=== PATIENT | female | born 1935 | race Caucasian/White ===

== ENCOUNTER → 2017-06-01 07:01 | Outpatient (CLI) | payer MEDICARE, OTHER, SELFPAY ==
[2017-06-01 10:56] LABS: Absolute Neutrophil Count 5.3 X10^3/uL (2.0-7.7); Basophil# 0.01 X10^3/uL; Basophil% 0.1 % (0-1); Eosinophil# 0.11 X10^3/uL; Eosinophils% 1.4 % (0-5); Hematocrit 38.5 % (37-47); Hemoglobin 12.7 g/dl (12.0-15.0); Lymphocyte % 20.8 % (19-41); Mean Corpuscular Hgb 32.4 pg (27.0-32.0); Mean Corpuscular Volume 98.2 fL (81-99); Mean Platelet Vol. 11.9 fl (6.2-12.0); Monocyte# 0.66 X10^3/uL; Monocyte% 8.6 % (0-10); Neutrophil # 5.31 X10^3/uL (2.7-7.7); Platelet Count 189 K/mm3 (150-450); RBC Distribution Width CV 12.8 % (11.6-14.6); RBC Distribution Width SD 45.8 fl (35.1-43.9); Red Blood Count 3.92 M/mm3 (4.2-5.4); White Blood Count 7.7 K/mm3 (4.4-11.0)
[2017-06-01 10:57] LABS: POSITIVE COUNT NO; POSITIVE DIFFERENTIAL NO; POSITIVE MORPHOLOGY NO
[2017-06-01 11:15] LABS: ALB/GLOB Ratio 0.9 RATIO (0.9-2.4); AST(SGOT) 20 U/L (15-37); Alanine Aminotransfer ALT/SGPT 23 U/L (13-56); Albumin, Serum 3.6 g/dL (3.2-5.0); Alkaline Phosphatase 81 U/L (45-117); Anion Gap 9 (5-15); BUN 22 mg/dL (7-18); BUN/Creat Ratio 22.9 RATIO (10-20); Chloride 105 mmol/L (98-107); Cholesterol 133 mg/dL (200); Creatinine, Serum 0.96 mg/dL (0.55-1.02); EST Glomerular Filtration Rate 59 mL/min (>60); Est Glom Filt Rate - Afr Amer 72 mL/min (>60); Globulin 3.9 g/dL (2.2-4.2); Glucose 101 mg/dL (74-106); High Density Lipoprotein 53 mg/dL; Potassium 3.5 mmol/L (3.5-5.1); Protein, Total 7.5 g/dL (6.4-8.2); Sodium Level 141 mmol/L (136-145); Triglycerides 101 mg/dL; Very Low Density Lipoprotein 20 mg/dL (5-40)
== END ==
LOC: BFHLAB 07:05 → MTLAB 07:09
PROVIDERS: Family Provider Family Medicine; PCP Family Medicine; Visit Provider Family Medicine
DX: I10 Essential (primary) hypertension (principal); E78.00 Pure hypercholesterolemia, unspecified; I47.2 Ventricular tachycardia
CPT/HCPCS: 36415; 80053; 80061; 85025

== ENCOUNTER → 2017-06-24 11:29 | Outpatient (CLI) | payer MEDICARE, OTHER, SELFPAY ==
[2017-06-24 16:10] LABS: Anion Gap 9 (5-15); BUN 26 mg/dL (7-18); BUN/Creat Ratio 23.9 RATIO (10-20); Calcium,Total 8.7 mg/dL (8.5-10.1); Chloride 103 mmol/L (98-107); Creatinine, Serum 1.09 mg/dL (0.55-1.02); EST Glomerular Filtration Rate 51 mL/min (>60); Est Glom Filt Rate - Afr Amer 62 mL/min (>60); Glucose 110 mg/dL (74-106); Potassium 3.3 mmol/L (3.5-5.1); Sodium Level 139 mmol/L (136-145)
== END ==
PROVIDERS: Family Provider Family Medicine; PCP Family Medicine; Visit Provider Family Medicine
DX: I10 Essential (primary) hypertension (principal)
CPT/HCPCS: 36415; 80048

== ENCOUNTER → 2017-08-18 09:53 | Outpatient (CLI) | payer MEDICARE, OTHER, SELFPAY ==
--- NOTE | 2017-08-18 09:55 | ECHOD_ITS ---
Reason For Study: Valve eval Procedure This was a 2D Doppler, Color Flow transthoracic echocardiogram. Exam performed in department. Left Ventricle Mild concentric left ventricular hypertrophy. The estimated ejection fraction is 65 %. Stage 1 diastolic dysfunction. No regional wall motion abnormalities noted. Right Ventricle Normal size and thickness. Normal systolic function. Atria Normal left atrium. Normal right atrium. Normal atrial septum. Mitral Valve The mitral valve is structurally normal. No prolapse or stenosis seen. Mild mitral annular calcification extending into the posterior leaflet. Tricuspid Valve Normal tricuspid valve. Trivial tricuspid valve insufficiency. Right ventricular systolic pressure estimated to be 32 mmHg. Aortic Valve Trisinus/trileaflet aortic valve. Mild diffuse aortic valve thickening. Mild (1+) aortic valve insufficiency. Pulmonic Valve Normal pulmonic valve. Great Vessels Normal aortic root. Normal arch. Normal inferior vena cava. Inferior vena cava collapse with sniff. Pericardium/Pleural No pericardial effusion. MMode/2D Measurements & Calculations LVIDd: 4.7 cm IVSd: 1.2 cm LVOT diam: 2.0 cm LVIDs: 2.9 cm LVPWd: 1.3 cm LVOT area: 3.1 cm2 FS: 37.7 % Ao root diam: 3.6 cm LAV(MOD-bp): 40.2 ml LA A4 area: 13.8 cm2 LA dimension: 3.5 cm LAV(MOD-bp) Indexed: 20.5 ml/m2 LAV(MOD-sp2): 52.7 ml LAV(MOD-sp4): 29.3 ml RA A4 area: 12.7 cm2 Time Measurements MV dec time: 0.20 sec Doppler Measurements & Calculations MV E max cameron: 88.7 cm/sec Lat Peak E' Cameron: 3.5 cm/sec Med Peak E' Cameron: 5.2 cm/sec MV A max cameron: 109.5 cm/sec E/E' lat: 25.0 E/E' med: 17.0 MV E/A: 0.81 MV V2 max: 120.8 cm/sec MV P1/2t max cameron: 101.2 cm/sec Ao V2 max: 158.2 cm/sec MV max P.8 mmHg MV P1/2t: 69.2 msec Ao max P.0 mmHg MV V2 mean: 63.2 cm/sec MV dec slope: 428.4 cm/sec2 Ao V2 mean: 105.2 cm/sec MV mean P.9 mmHg MVA(P1/2t): 3.2 cm2 Ao mean P.0 mmHg MV V2 VTI: 36.7 cm Ao V2 VTI: 34.0 cm MVA(VTI): 2.2 cm2 DAVID(I,D): 2.4 cm2 DAVID(V,D): 2.3 cm2 AI max cameron: 503.0 cm/sec LV V1 max: 117.0 cm/sec SV(LVOT): 80.5 ml AI max P.2 mmHg LV V1 max P.5 mmHg AI dec slope: 286.7 cm/sec2 LV V1 mean P.8 mmHg AI P1/2t: 513.9 msec LV V1 mean: 77.2 cm/sec LV V1 VTI: 26.3 cm PA V2 max: 100.2 cm/sec TR max cameron: 261.4 cm/sec TR max P.3 mmHg Interpretation Summary Mild concentric left ventricular hypertrophy. The estimated ejection fraction is 65 %. Stage 1 diastolic dysfunction. Trivial tricuspid valve insufficiency. Right ventricular systolic pressure estimated to be 32 mmHg. Mild (1+) aortic valve insufficiency. In comparison to echo report dated 01/21/2013, no appreciable changes noted. Ordering Physician: Alfred Landers Referring Physician: Alfred Landers Performed By: Marcos Juárez RCS
== END ==
PROVIDERS: Family Provider Family Medicine; PCP Family Medicine; Visit Provider Internal Medicine Cardiovascular Disease
DX: I47.1 Supraventricular tachycardia (principal); I35.1 Nonrheumatic aortic (valve) insufficiency; E78.5 Hyperlipidemia, unspecified; I10 Essential (primary) hypertension
CPT/HCPCS: 93306

== ENCOUNTER → 2018-06-17 | Outpatient (CLI) | payer MEDICARE, OTHER, SELFPAY ==
[2018-06-17 09:57] LABS: Absolute Lymphocyte Count 1.38 X10^3/ul (0.83-4.51); Absolute Neutrophil Count 6.1 X10^3/uL (2.0-7.7); Basophil# 0.01 X10^3/uL; Basophil% 0.1 % (0-1); Eosinophil# 0.15 X10^3/uL; Eosinophils% 1.8 % (0-5); Hemoglobin 12.2 g/dl (12.0-15.0); Lymphocyte # 1.38 X10^3/ul (4.0); Lymphocyte % 16.5 % (19-41); Mean Corpuscular Hgb 32.3 pg (27.0-32.0); Mean Corpuscular Volume 97.9 fL (81-99); Mean Platelet Vol. 11.6 fl (6.2-12.0); Monocyte# 0.71 X10^3/uL; Monocyte% 8.5 % (0-10); Neutrophil # 6.11 X10^3/uL (2.7-7.7); Platelet Count 185 K/mm3 (150-450); RBC Distribution Width CV 12.8 % (11.6-14.6); Red Blood Count 3.78 M/mm3 (4.2-5.4); White Blood Count 8.4 K/mm3 (4.4-11.0)
[2018-06-17 09:58] LABS: POSITIVE COUNT NO; POSITIVE DIFFERENTIAL NO; POSITIVE MORPHOLOGY NO
[2018-06-17 10:20] LABS: ALB/GLOB Ratio 1.1 RATIO (0.9-2.4); AST(SGOT) 17 U/L (15-37); Alanine Aminotransfer ALT/SGPT 19 U/L (13-56); Albumin, Serum 3.7 g/dL (3.2-5.0); Alkaline Phosphatase 88 U/L (45-117); Anion Gap 6 (5-15); BUN 27 mg/dL (7-18); BUN/Creat Ratio 21.6 RATIO (10-20); Calcium,Total 8.8 mg/dL (8.5-10.1); Chloride 103 mmol/L (98-107); Cholesterol 125 mg/dL (200); Creatinine, Serum 1.25 mg/dL (0.55-1.02); EST Glomerular Filtration Rate 44 mL/min (>60); Est Glom Filt Rate - Afr Amer 53 mL/min (>60); Globulin 3.5 g/dL (2.2-4.2); Glucose 109 mg/dL (74-106); High Density Lipoprotein 57 mg/dL; Potassium 3.3 mmol/L (3.5-5.1); Protein, Total 7.2 g/dL (6.4-8.2); Sodium Level 139 mmol/L (136-145); Triglycerides 107 mg/dL; Very Low Density Lipoprotein 21 mg/dL (5-40)
== END | disposition home or self-care (01) ==
LOC: MTLAB 07:04
PROVIDERS: Family Provider Family Medicine; PCP Family Medicine; Referring Provider Family Medicine; Visit Provider Family Medicine
DX: I10 Essential (primary) hypertension (principal); E78.00 Pure hypercholesterolemia, unspecified; Z51.81 Encounter for therapeutic drug level monitoring
CPT/HCPCS: 36415; 80053; 80061; 85025

== ENCOUNTER → 2018-12-27 13:28 | Outpatient (CLI) | payer MEDICARE, OTHER, SELFPAY ==
[2017-12-14 13:29] VITALS: BMI 32.8
[2018-12-27 15:32] LABS: Absolute Lymphocyte Count 1.85 X10^3/uL (0.83-4.51); Absolute Neutrophil Count 5.4 X10^3/uL (2.0-7.7); Basophil# 0.03 X10^3/uL; Basophil% 0.4 % (0-1); Eosinophil# 0.15 X10^3/uL; Eosinophils% 1.8 % (0-5); Hematocrit 35.5 % (37-47); Hemoglobin 11.9 g/dL (12.0-15.0); Lymphocyte # 1.85 X10^3/ul (4.0); Lymphocyte % 22.5 % (19-41); Mean Corp Hgb Conc 33.5 g/dL (32-36); Mean Corpuscular Volume 98.3 fL (81-99); Monocyte# 0.76 X10^3/uL; Monocyte% 9.2 % (0-10); NRBC Flagged by Analyzer 0 % (0-5); Neutrophil # 5.42 X10^3/uL (2.7-7.7); Neutrophil % 65.9 % (47-70); Platelet Count 194 K/mm3 (150-450); RBC Distribution Width CV 12.7 % (11.6-14.6); Red Blood Count 3.61 M/mm3 (4.2-5.4); White Blood Count 8.2 K/mm3 (4.4-11.0)
[2018-12-27 16:03] LABS: Vitamin D,25 Hydroxy 12.5 ng/mL (29.95-100.01)
[2018-12-27 16:13] LABS: ALB/GLOB Ratio 0.9 RATIO (0.9-2.4); AST(SGOT) 19 U/L (15-37); Alanine Aminotransfer ALT/SGPT 19 U/L (13-56); Albumin, Serum 3.4 g/dL (3.2-5.0); Alkaline Phosphatase 84 U/L (45-117); Anion Gap 11 (5-15); BUN 18 mg/dL (7-18); BUN/Creat Ratio 18.1 RATIO (10-20); Calcium,Total 8.3 mg/dL (8.5-10.1); Chloride 102 mmol/L (98-107); EST Glomerular Filtration Rate 57 mL/min (>60); Est Glom Filt Rate - Afr Amer 69 mL/min (>60); Globulin 3.6 g/dL (2.2-4.2); Glucose 95 mg/dL (74-106); Sodium Level 140 mmol/L (136-145)
[2018-12-27 16:59] LABS: Hemoglobin A1c 5.7 % (4.2-6.3)
[2018-12-27 17:38] LABS: Potassium 2.6 mmol/L (3.5-5.1)
[2018-12-29 15:42] LABS: V-Zoster IgG (Immunity) 2190 index (Immune >165)
== END ==
PROVIDERS: Family Provider Family Medicine; PCP Family Medicine; Visit Provider Family Medicine
DX: I12.9 Hypertensive chronic kidney disease with stage 1 through stage 4 chronic kidney disease, or unspecified chronic kidney disease (principal); N18.3 Chronic kidney disease, stage 3 (moderate); R73.01 Impaired fasting glucose; B02.9 Zoster without complications; Z91.89 Other specified personal risk factors, not elsewhere classified
CPT/HCPCS: 36415; 80053; 82306; 83036; 85025; 86787

== ENCOUNTER → 2019-01-03 11:14 | Outpatient (CLI) | payer MEDICARE, OTHER, SELFPAY ==
[2017-12-14 13:29] VITALS: BMI 32.8
[2019-01-03 16:31] LABS: Anion Gap 9 (5-15); BUN 16 mg/dL (7-18); BUN/Creat Ratio 15.5 RATIO (10-20); Calcium,Total 8.3 mg/dL (8.5-10.1); Chloride 106 mmol/L (98-107); Creatinine, Serum 1.03 mg/dL (0.55-1.02); EST Glomerular Filtration Rate 55 mL/min (>60); Est Glom Filt Rate - Afr Amer 66 mL/min (>60); Glucose 148 mg/dL (74-106); Potassium 4.2 mmol/L (3.5-5.1); Sodium Level 138 mmol/L (136-145)
== END ==
LOC: LAB.FUTURE 11:14 → BFHLAB 01-04 13:24
PROVIDERS: Family Provider Family Medicine; PCP Family Medicine; Visit Provider Family Medicine
DX: E87.6 Hypokalemia (principal)
CPT/HCPCS: 36415; 80048

== ENCOUNTER → 2019-03-15 12:17 | Outpatient (CLI) | payer MEDICARE, OTHER, SELFPAY ==
[2017-12-14 13:29] VITALS: BMI 32.8
[2019-03-15 15:55] LABS: Anion Gap 6 (5-15); BUN 25 mg/dL (7-18); BUN/Creat Ratio 20.8 RATIO (10-20); Calcium,Total 9.1 mg/dL (8.5-10.1); Chloride 108 mmol/L (98-107); EST Glomerular Filtration Rate 46 mL/min (>60); Est Glom Filt Rate - Afr Amer 55 mL/min (>60); Glucose 98 mg/dL (74-106); Potassium 3.7 mmol/L (3.5-5.1); Sodium Level 139 mmol/L (136-145)
== END ==
LOC: LAB.FUTURE 12:22 → BFHLAB 04-26 09:47
PROVIDERS: Family Provider Family Medicine; PCP Family Medicine; Visit Provider Family Medicine
DX: I12.9 Hypertensive chronic kidney disease with stage 1 through stage 4 chronic kidney disease, or unspecified chronic kidney disease (principal); N18.9 Chronic kidney disease, unspecified
CPT/HCPCS: 36415; 80048

== ENCOUNTER → 2019-08-29 11:48 | Outpatient (CLI) | payer MEDICARE, OTHER, SELFPAY ==
[2019-08-29 16:19] LABS: Anion Gap 9 (5-15); BUN 17 mg/dL (7-18); BUN/Creat Ratio 17.8 RATIO (10-20); Calcium,Total 8.8 mg/dL (8.5-10.1); Chloride 103 mmol/L (98-107); Creatinine, Serum 0.96 mg/dL (0.55-1.02); EST Glomerular Filtration Rate 59 mL/min (>60); Est Glom Filt Rate - Afr Amer 72 mL/min (>60); Glucose 103 mg/dL (74-106); Potassium 3.9 mmol/L (3.5-5.1); Sodium Level 135 mmol/L (136-145)
== END ==
PROVIDERS: PCP Family Medicine; Visit Provider Family Medicine
DX: N18.3 Chronic kidney disease, stage 3 (moderate) (principal)
CPT/HCPCS: 36415; 80048

== ENCOUNTER 2019-09-23 09:00 | Outpatient (RCR) | payer MEDICARE, OTHER, SELFPAY ==
[2019-09-09 09:36] VITALS: BP 127/71; PULSE 76; RESP 18; TEMP 36.3
--- NOTE | 2019-09-09 14:53 | PCM.WC.HP ---
(1) Lymphedema of both lower extremities Status: Chronic Current Visit: Yes Code(s): I89.0 - Lymphedema, not elsewhere classified (2) Venous ulcer of right lower extremity without varicose veins Status: Chronic Current Visit: Yes Code(s): I87.2 - Venous insufficiency (chronic) (peripheral); L97.919 - Non-pressure chronic ulcer of unspecified part of right lower leg with unspecified severity (3) Venous ulcer of left lower extremity without varicose veins Status: Chronic Current Visit: Yes Code(s): I87.2 - Venous insufficiency (chronic) (peripheral); L97.929 - Non-pressure chronic ulcer of unspecified part of left lower leg with unspecified severity (4) Hyperlipidemia Status: Chronic Current Visit: Yes Qualifiers: Code(s): E78.5 - Hyperlipidemia, unspecified (5) HTN (hypertension) Status: Chronic Current Visit: Yes Qualifiers: Code(s): I10 - Essential (primary) hypertension History of Present Illness Date of Service: 09/09/19 Chief Complaint: edema and ulcers of LE bilaterally Past Medical History Past Medical History: Chronic Problems (Last Updated 08/13/17 @ 09:20 by Janie Giang) Lymphedema of both lower extremities (Chronic) Venous ulcer of right lower extremity without varicose veins (Chronic) Venous ulcer of left lower extremity without varicose veins (Chronic) Paroxysmal atrial tachycardia (Chronic) Paroxysmal ventricular tachycardia (Chronic) Nonrheumatic aortic valve insufficiency (Chronic) Right bundle branch block (RBBB) (Chronic) Hyperlipidemia (Chronic) HTN (hypertension) (Chronic) Surgical History: - - Open reduction and internal fixation of bimalleolar right ankle fracture 08/15/14 Allergies/Adverse Reactions: Allergies aspirin Allergy (Verified 12/14/17 13:30) Hives Home Medications: Ambulatory Orders Medication Instructions Recorded Acetaminophen [Tylenol Tablet] 650 mg PO Q6H PRN PRN #0 tab 08/29/14 hydrochlorothiazide 25 mg tablet 25 mg PO QAM #90 tab 04/26/18 losartan 100 mg tablet 100 mg PO DAILY #90 tab 12/27/18 carvedilol 25 mg tablet 25 mg PO BID #180 tab 04/07/19 clopidogrel 75 mg tablet 75 mg PO DAILY #90 tab 04/07/19 atorvastatin 20 mg tablet 20 mg PO QHS #90 tab 05/26/19 Amlodipine [Norvasc] 5 mg PO DAILY 09/09/19 Ammonium Lactate [Amlactin] 0 gm TOPICAL DAILY 09/09/19 Cholecalciferol (Vitamin D3) 50,000 unit PO QWEEK 09/09/19 [Vitamin D] Potassium Chloride [K-Dur] 20 meq PO BID 09/09/19 - Family History Maternal Family History: Family History (Last Reviewed 01/26/17 @ 14:13 by Janie Giang) Mother CAD (coronary artery disease) Sister Diabetes No pertinent history Paternal Family History: Family History (Last Reviewed 01/26/17 @ 14:13 by Janie Giang) Mother CAD (coronary artery disease) Sister Diabetes No pertinent history Lives: Alone Smoking Status: Never smoker Tobacco Use: Non-smoker Alcohol: None Drugs: None Review of Systems Constitutional: Denies: Chills, Fever, Weight Change Eyes: Denies: Pain, Vision Change HEENT: Denies: Difficulty Hearing, Difficulty Swallowing, Sinus Congestion Cardiovascular: Reports: Edema. Denies: Chest Pain, Palpitations Respiratory: Denies: Cough, Shortness of Breath Genitourinary: Denies: Dysuria, Hematuria Skin: Reports: Skin Changes, Wounds Endocrine: Denies: Heat/ Cold Intolerance, Polydipsia, Polyuria Hematologic/ Lymphatic: Denies: Easy Bruising, Easy Bleeding - Physical Exam Vital Signs Temp Pulse Resp BP 97.3 F L 76 18 127/71 H 09/09/19 09:36 09/09/19 09:36 09/09/19 09:36 09/09/19 09:36 General: Alert, Oriented x3, Cooperative, No apparent distress HEENT: Atraumatic, Normocephalic Oral: Moist Mucosa Abdomen: Obese Extremities: No cyanosis, No Calf Tenderness, Diminished Peripheral Pulses, Edema Skin: Ulcer/ Wound Wound Measurements and Assessment WC - Nurse 1 - General Ulcer Measurement Start: 09/09/19 09:05 Freq: Status: Active Protocol: Activity Type Activity Date Activity User E-Sign Co-Sign Detail Recorded Client Recorded Date Recorded By Document 09/09/19 09:36 RB [id number] 09/09/19 09:43 RB 09/09/19 09:36 Wound Center Nurse 1 [Ulcer Assessment] 2. LLE cluster -Combined with other wound No -Current Size (cm) - Length 10 -Current Size (cm) - Width 13 -Current Size (cm) - Depth 0.1 -Total Square Cm 130 -Photo Taken Yes -Tunneling No -Undermining/Tunneling No -Circular Undermining No -Exudate Amt Medium -Exudate Type Serosanguineous -Wound Margin Flat & Intact -Granulation Amt Medium (34-66%) -Granulation Quality [place] -Slough/Fibrin Yes -Necrosis Amt Small (1-33%) -Necrotic Tissue Type Adherent Slough -Structure Exposed N/A -Texture (Sindy-wound Skin Appearance) Assessed -Moisture (Sindy-wound Skin Appearance Weeping ) -Color (Sindy-wound Skin Appearance) Erythema -Temperature (Sindy-wound Skin No Abnormality Appearance) (Pt Warm) -Tenderness on Palpation (Sindy-wound No Skin Appearance) -Ulcer Cleansing Wound Cleanser -Foul Odor after Cleansing No -Anesthetic Used 4% Lidocaine Solution 1. RLE cluster -Combined with other wound No -Current Size (cm) - Length 7 -Current Size (cm) - Width 4.5 -Current Size (cm) - Depth 0.1 -Total Square Cm 31.5 -Photo Taken Yes -Tunneling No -Undermining/Tunneling No -Circular Undermining No -Exudate Amt Medium -Exudate Type Serosanguineous -Wound Margin Flat & Intact -Granulation Amt Medium (34-66%) -Granulation Quality [place] -Slough/Fibrin Yes -Necrosis Amt Small (1-33%) -Necrotic Tissue Type Adherent Slough -Structure Exposed N/A -Texture (Sindy-wound Skin Appearance) Assessed -Moisture (Sindy-wound Skin Appearance Weeping ) -Color (Sindy-wound Skin Appearance) Erythema -Temperature (Sindy-wound Skin No Abnormality Appearance) (Pt Warm) -Tenderness on Palpation (Sindy-wound No Skin Appearance) -Ulcer Cleansing Wound Cleanser -Foul Odor after Cleansing No -Anesthetic Used 4% Lidocaine Solution [Edema Assessment] -Lower Limb Edema Present Yes -Right Calf (cm) 48.5 -Right Ankle (cm) 26.5 -Left Calf (cm) 48.2 -Left Ankle (cm) 23.2 WC - Nurse 2 - General Ulcer CM Notes Start: 09/09/19 09:05 Freq: Status: Active Protocol: Activity Type Activity Date Activity User E-Sign Co-Sign Detail Recorded Client Recorded Date Recorded By Document 09/09/19 10:23 DV [id number] 09/09/19 10:27 DV 09/09/19 10:23 Wound Center Nurse 2 [Procedure/Treatment] 2. LLE cluster -Time 10:24 -Correct Patient Yes -Correct Side, Site, Position Yes -Correct Procedure Yes -Procedure Performed Yes -Type of Procedure Debridement -Clinical Debridement Subcutaneous -Post Debridement Size (cm) - Length 8.0 -Post Debridement Size (cm) - Width 3.0 -Post Debridement Size (cm) - Depth 0.1 -Total Square Cm 24.00 -Wound/Ulcer Outcome Not Healed -Ulcer Cleansing Rinsed/ Irrigated with Saline -Foul Odor after Cleansing No -Bioengineered Tissue No -Bleeding Controlled with Pressure -Offloading No -Treatment Response Procedure Tolerated Well 1. RLE cluster -Time 10:23 -Correct Patient Yes -Correct Side, Site, Position Yes -Correct Procedure Yes -Procedure Performed Yes -Type of Procedure Debridement -Clinical Debridement Selective -Post Debridement Size (cm) - Length 3.0 -Post Debridement Size (cm) - Width 5.5 -Post Debridement Size (cm) - Depth 0.1 -Total Square Cm 16.50 -Wound/Ulcer Outcome Not Healed -Ulcer Cleansing Rinsed/ Irrigated with Saline -Foul Odor after Cleansing No -Bioengineered Tissue No -Bleeding Controlled with Pressure -Treatment Response Procedure Tolerated Well [See Physician Procedure note for Specifics] Pain Scale: 0-10 Numeric [Pain] -Is Patient Pain Free? Yes Psych/Mental Status: Normal Affect, Appropriate Debridement Note Post-Debridement Measurements/Treatment WC - Nurse 2 - General Ulcer CM Notes Start: 09/09/19 09:05 Freq: Status: Active Protocol: Activity Type Activity Date Activity User E-Sign Co-Sign Detail Recorded Client Recorded Date Recorded By Document 09/09/19 10:23 DV [id number] 09/09/19 10:27 DV 09/09/19 10:23 Wound Center Nurse 2 2. LLE cluster -Time 10:24 -Correct Patient Yes -Correct Side, Site, Position Yes -Correct Procedure Yes -Procedure Performed Yes -Type of Procedure Debridement -Clinical Debridement Subcutaneous -Post Debridement Size (cm) - Length 8.0 -Post Debridement Size (cm) - Width 3.0 -Post Debridement Size (cm) - Depth 0.1 -Total Square Cm 24.00 -Wound/Ulcer Outcome Not Healed -Ulcer Cleansing Rinsed/ Irrigated with Saline -Foul Odor after Cleansing No -Bioengineered Tissue No -Bleeding Controlled with Pressure -Offloading No -Treatment Response Procedure Tolerated Well 1. RLE cluster -Time 10:23 -Correct Patient Yes -Correct Side, Site, Position Yes -Correct Procedure Yes -Procedure Performed Yes -Type of Procedure Debridement -Clinical Debridement Selective -Post Debridement Size (cm) - Length 3.0 -Post Debridement Size (cm) - Width 5.5 -Post Debridement Size (cm) - Depth 0.1 -Total Square Cm 16.50 -Wound/Ulcer Outcome Not Healed -Ulcer Cleansing Rinsed/ Irrigated with Saline -Foul Odor after Cleansing No -Bioengineered Tissue No -Bleeding Controlled with Pressure -Treatment Response Procedure Tolerated Well Pain Scale: 0-10 Numeric Is Patient Pain Free? Yes Wound debrided: right LE cluster Laterality: Right Type of Debridement: Selective debridement Anesthesia Used: 4% Lidocaine Solution Depth: Down to and including healthy tissue Percentage of wound debrided: 100 Instrument Used: - - gauze Tissue Removed: yellow slough, devitalized tissue Severity: Fat Layer Exposed Amount of bleeding with debridement: Mild Bleeding Controlled with: Pressure Patient tolerated procedure well - Additional Wound Wound debrided: Left LE cluster Laterality: Left Type of Debridement: Selective debridement Anesthesia Used: 4% Lidocaine Solution Depth: Down to and including healthy tissue Percentage of wound debrided: 100 Instrument Used: - - gauze Tissue Removed: yellow slough, devitalized tissue Severity: Limited To Skin Breakdown Amount of bleeding with debridement: Mild Bleeding Controlled with: Compression and gauze Patient tolerated procedure: Patient tolerated procedure well Assessment/Plan Active Problems (Last Updated 08/13/17 @ 09:20 by Janie Giang) Lymphedema of both lower extremities (Chronic) Venous ulcer of right lower extremity without varicose veins (Chronic) Venous ulcer of left lower extremity without varicose veins (Chronic) Hyperlipidemia (Chronic) HTN (hypertension) (Chronic) Assessment: lymphedema LE b/l with ulcers Plan: Pam was seen and evaluated today. Will treat her lymphedema and ulcers with Unna boot compression and obtain vascular testing to evaluate her venous and arterial circulation. She was educated on the cause of her edema and encouraged to elevated her LE when sitting, sleep in bed instead of chair and avoid idle standing. She was encouraged to increase protein intake to improve wound healing. She was advised to call with any increased erythema, odor, drainage or pain. F/U in 1 week for wound care and on Thursday for UNNA boot change.
[2019-09-12 15:01] VITALS: BP 150/64; PULSE 79; RESP 20; TEMP 37.1
--- NOTE | 2019-09-16 08:03 | VDLE_ITS ---
Reason For Study: Pain, Edema RIGHT LEFT CFV is compressible, spontaneous, phasic, CFV is compressible, spontaneous, phasic, competent and demonstrates normal competent, and demonstrates normal augmentation. augmentation. FV is compressible, spontaneous, phasic, FV is compressible, spontaneous, phasic, competent and demonstrates normal competent and demonstrates normal augmentation. augmentation. POP V is compressible, spontaneous, phasic, POP V is compressible, spontaneous, phasic, competent and demonstrates normal competent and demonstrates normal augmentation. augmentation. T/P Trunk is compressible. T/P Trunk is compressible. Unable to visualize PTV, PeroV and GSV below Unable to visualize PTV, PeroV and GSV below knee due to unna boot bandgaes. knee due to unna boot bandgaes. SFJ is competent and measures 0.79 x 0.72 cm. SFJ is competent and measures 0.82 x 0.70 cm. GSV proximal thigh measures 0.58 x 0.59 cm. GSV proximal thigh measures 0.55 x 0.56 cm. GSV at knee measures 0.45 x 0.44 cm. GSV at knee measures 0.41 x 0.40 cm. GSV above knee is INCOMPETENT for greater GSV above knee is INCOMPETENT for greater than 0.5 seconds. than 0.5 seconds. SSV at junction is competent and measures SSV at junction is INCOMPETENT for greater 0.56 x 0.59 cm. than 0.5 seconds and measures 0.24 x 0.25 cm. Procedure Exam performed in department. A preliminary report was called and/or faxed to . Interpretation Summary Deep veins of the lower extremities are bilaterally patent and compressible segmentally. There is no evidence of deep vein thrombosis on either side. Valvular competence appears intact within the proximal deep venous systems bilaterally. The great saphenous veins appear bilaterally patent and compressible segmentally. However, the posterior tibial veins, peroneal veins, and great saphenous veins below the knee were not evaluated on either side due to the presence of compressive wraps. Sapheno-femoral junctions are bilaterally competent . The right great saphenous vein appears incompetent above the knee. The left great saphenous vein appears incompetent above the knee. The right small saphenous vein is competent at the sapheno-popliteal junction. The left small saphenous vein is incompetent at the sapheno-popliteal junction. Ordering Physician: Malissa Farfan Referring Physician: James Richard Performed By: Shahana Arora RVT
[2019-09-16 09:25] VITALS: BP 111/78; PULSE 74; RESP 18; TEMP 36.3
--- NOTE | 2019-09-16 16:02 | PCM.WC.PN ---
(1) Lymphedema of both lower extremities Status: Chronic Current Visit: Yes Code(s): I89.0 - Lymphedema, not elsewhere classified (2) Venous ulcer of right lower extremity without varicose veins Status: Chronic Current Visit: Yes Code(s): I87.2 - Venous insufficiency (chronic) (peripheral); L97.919 - Non-pressure chronic ulcer of unspecified part of right lower leg with unspecified severity (3) Venous ulcer of left lower extremity without varicose veins Status: Chronic Current Visit: Yes Code(s): I87.2 - Venous insufficiency (chronic) (peripheral); L97.929 - Non-pressure chronic ulcer of unspecified part of left lower leg with unspecified severity (4) Hyperlipidemia Status: Chronic Current Visit: Yes Qualifiers: Code(s): E78.5 - Hyperlipidemia, unspecified (5) HTN (hypertension) Status: Chronic Current Visit: Yes Qualifiers: Code(s): I10 - Essential (primary) hypertension Type of Wound Date of Service: 09/16/19 Chief Complaint: edema and ulcers of LE bilaterally History of Wound: Pam is a nice 83 yo female that presents to the wound center for evaluation and treatment of bilateral lower extremity edema and ulcers that have presented in the last 2-3 months. She has started sleeping in an arm chair and does not have her legs elevated overnight. Her edema has been worsening over this time and in the last 2-3 weeks she has started getting scabbing and scaling of her legs b/l. She has been washing with soap and water and then applying lachydrin over the last week or so as instructed by her PCP. She has not had problems with healing wounds in the past and reports no problem with edema in the past either. She denies fever, chills. Progress of Wound: Pam ulcers and edema are improved and ulcers are healed. She tolerated Unna boot compression well. - Physical Exam Vital Signs Temp Pulse Resp BP 97.4 F L 74 18 111/78 09/16/19 09:25 09/16/19 09:25 09/16/19 09:25 09/16/19 09:25 General: Alert, Oriented x3, Cooperative, No apparent distress HEENT: Atraumatic, Normocephalic Oral: Moist Mucosa Abdomen: Obese Extremities: Edema Skin: Ulcer/ Wound Wound Measurements and Assessment WC - Nurse 1 - General Ulcer Measurement Start: 09/09/19 09:05 Freq: Status: Active Protocol: Activity Type Activity Date Activity User E-Sign Co-Sign Detail Recorded Client Recorded Date Recorded By Document 09/16/19 09:25 RB [id number] 09/16/19 09:45 RB 09/16/19 09:25 Wound Center Nurse 1 [Ulcer Assessment] 2. LLE cluster -Combined with other wound No -Current Size (cm) - Length 1.5 -Current Size (cm) - Width 1 -Current Size (cm) - Depth 0.1 -Total Square Cm 1.5 -Tunneling No -Undermining/Tunneling No -Circular Undermining No -Exudate Amt Small -Exudate Type Serosanguineous -Wound Margin Flat & Intact -Granulation Amt Large (67-100%) -Granulation Quality [place] -Slough/Fibrin Yes -Necrosis Amt Small (1-33%) -Necrotic Tissue Type Adherent Slough -Structure Exposed N/A -Texture (Sindy-wound Skin Appearance) Assessed, Excoriation -Moisture (Sindy-wound Skin Appearance Assessed ) -Color (Sindy-wound Skin Appearance) Assessed -Temperature (Sindy-wound Skin No Abnormality Appearance) (Pt Warm) -Tenderness on Palpation (Sindy-wound No Skin Appearance) -Ulcer Cleansing Wound Cleanser -Foul Odor after Cleansing No -Anesthetic Used 4% Lidocaine Solution 1. RLE cluster -Combined with other wound No -Current Size (cm) - Length 0 -Current Size (cm) - Width 0 -Current Size (cm) - Depth 0 -Total Square Cm 0 -Photo Taken Yes -Epithelialization Large 67-100% [Edema Assessment] -Lower Limb Edema Present Yes -Right Calf (cm) 42.5 -Right Ankle (cm) 23 -Left Calf (cm) 45.8 -Left Ankle (cm) 24 WC - Nurse 2 - General Ulcer CM Notes Start: 09/09/19 09:05 Freq: Status: Active Protocol: Activity Type Activity Date Activity User E-Sign Co-Sign Detail Recorded Client Recorded Date Recorded By Document 09/16/19 09:59 DV [id number] 09/16/19 10:05 DV 09/16/19 09:59 Wound Center Nurse 2 [Procedure/Treatment] 2. LLE cluster -Time 10:00 -Correct Patient Yes -Correct Side, Site, Position Yes -Correct Procedure No -Procedure Performed No -Post Debridement Size (cm) - Length 0 -Post Debridement Size (cm) - Width 0 -Post Debridement Size (cm) - Depth 0 -Total Square (cm) 0 -Wound/Ulcer Outcome Healed- Epithelialized 1. E cluster -Time 10:01 -Correct Patient Yes -Correct Side, Site, Position Yes -Correct Procedure No -Procedure Performed No -Post Debridement Size (cm) - Length 0 -Post Debridement Size (cm) - Width 0 -Post Debridement Size (cm) - Depth 0 -Total Square (cm) 0 -Wound/Ulcer Outcome Healed- Epithelialized [See Physician Procedure note for Specifics] Pain Scale: 0-10 Numeric [Pain] -Is Patient Pain Free? Yes Psych/Mental Status: Normal Affect, Appropriate Debridement Note Post-Debridement Measurements/Treatment WC - Nurse 2 - General Ulcer CM Notes Start: 09/09/19 09:05 Freq: Status: Active Protocol: Activity Type Activity Date Activity User E-Sign Co-Sign Detail Recorded Client Recorded Date Recorded By Document 09/09/19 10:23 DV [id number] 09/09/19 10:27 DV Document 09/16/19 09:59 DV [id number] 09/16/19 10:05 DV 09/09/19 09/16/19 10:23 09:59 Wound Center Nurse 2 2. [facility] cluster -Time 10:24 10:00 -Correct Patient Yes Yes -Correct Side, Site, Position Yes Yes -Correct Procedure Yes No -Procedure Performed Yes No -Type of Procedure Debridement -Clinical Debridement Selective -Post Debridement Size (cm) - Length 8.0 0 -Post Debridement Size (cm) - Width 3.0 0 -Post Debridement Size (cm) - Depth 0.1 0 -Total Square (cm) 24.00 0 -Wound/Ulcer Outcome Not Healed Healed- Epithelialized -Ulcer Cleansing Rinsed/ Irrigated with Saline -Foul Odor after Cleansing No -Bioengineered Tissue No -Bleeding Controlled with Pressure -Offloading No -Treatment Response Procedure Tolerated Well 1. [facility] cluster -Time 10:23 10:01 -Correct Patient Yes Yes -Correct Side, Site, Position Yes Yes -Correct Procedure Yes No -Procedure Performed Yes No -Type of Procedure Debridement -Clinical Debridement Selective -Post Debridement Size (cm) - Length 3.0 0 -Post Debridement Size (cm) - Width 5.5 0 -Post Debridement Size (cm) - Depth 0.1 0 -Total Square (cm) 16.50 0 -Wound/Ulcer Outcome Not Healed Healed- Epithelialized -Ulcer Cleansing Rinsed/ Irrigated with Saline -Foul Odor after Cleansing No -Bioengineered Tissue No -Bleeding Controlled with Pressure -Treatment Response Procedure Tolerated Well Pain Scale: 0-10 Numeric Is Patient Pain Free? Yes Yes Wound debrided: left LE cluster Laterality: Left No debridement was completed today - Additional Wound Wound debrided: right LE cluster Laterality: Right Operative Diagnosis: no debridement completed. Healed. Assessment/Plan Active Problems (Last Updated 08/13/17 @ 09:20 by Janie Giang) Lymphedema of both lower extremities (Chronic) Venous ulcer of right lower extremity without varicose veins (Chronic) Venous ulcer of left lower extremity without varicose veins (Chronic) Hyperlipidemia (Chronic) HTN (hypertension) (Chronic) Assessment: lymphedema LE b/l with ulcers Plan: Pam was seen and evaluated today. Her preliminary vascular tests were reviewed and show venous incompetence L>R which is consistent with her physical exam. Will transition her to tubigrip compression and then to compression stockings. She was educated on the cause of her edema and encouraged to elevated her LE when sitting, sleep in bed instead of chair and avoid idle standing. She was encouraged to increase protein intake to improve wound healing. She was advised to call with any increased erythema, odor, drainage or pain. F/U in 1 week.
[2019-09-23 09:02] VITALS: BP 145/61; PULSE 71; RESP 18; TEMP 36.3
--- NOTE | 2019-09-23 11:19 | PCM.WC.PN ---
(1) Lymphedema of both lower extremities Status: Chronic Current Visit: Yes Code(s): I89.0 - Lymphedema, not elsewhere classified (2) Venous ulcer of right lower extremity without varicose veins Status: Resolved Current Visit: Yes Code(s): I87.2 - Venous insufficiency (chronic) (peripheral); L97.919 - Non-pressure chronic ulcer of unspecified part of right lower leg with unspecified severity (3) Venous ulcer of left lower extremity without varicose veins Status: Resolved Current Visit: Yes Code(s): I87.2 - Venous insufficiency (chronic) (peripheral); L97.929 - Non-pressure chronic ulcer of unspecified part of left lower leg with unspecified severity (4) Hyperlipidemia Status: Chronic Current Visit: Yes Qualifiers: Code(s): E78.5 - Hyperlipidemia, unspecified (5) HTN (hypertension) Status: Chronic Current Visit: Yes Qualifiers: Code(s): I10 - Essential (primary) hypertension Type of Wound Date of Service: 09/23/19 Chief Complaint: edema and ulcers of LE bilaterally History of Wound: Pam is a nice 83 yo female that presents to the wound center for evaluation and treatment of bilateral lower extremity edema and ulcers that have presented in the last 2-3 months. She has started sleeping in an arm chair and does not have her legs elevated overnight. Her edema has been worsening over this time and in the last 2-3 weeks she has started getting scabbing and scaling of her legs b/l. She has been washing with soap and water and then applying lachydrin over the last week or so as instructed by her PCP. She has not had problems with healing wounds in the past and reports no problem with edema in the past either. She denies fever, chills. Progress of Wound: Pam ulcers remain healed and her edema is well controlled with tubigrip stockings. - Physical Exam Vital Signs Temp Pulse Resp BP 97.3 F L 71 18 145/61 H 09/23/19 09:02 09/23/19 09:02 09/23/19 09:02 09/23/19 09:02 General: Alert, Oriented x3, Cooperative, No apparent distress HEENT: Atraumatic, Normocephalic Oral: Moist Mucosa Abdomen: Obese Extremities: Edema Skin: Ulcer/ Wound Wound Measurements and Assessment WC - Nurse 1 - General Ulcer Measurement Start: 09/09/19 09:05 Freq: Status: Active Protocol: Activity Type Activity Date Activity User E-Sign Co-Sign Detail Recorded Client Recorded Date Recorded By Document 09/23/19 09:02 RB [id number] 09/23/19 09:03 RB 09/23/19 09:02 Wound Center Nurse 1 [Edema Assessment] -Lower Limb Edema Present Yes -Right Calf (cm) 41.2 -Right Ankle (cm) 23 -Left Calf (cm) 44.4 -Left Ankle (cm) 23 Psych/Mental Status: Normal Affect, Appropriate Debridement Note Post-Debridement Measurements/Treatment WC - Nurse 2 - General Ulcer CM Notes Start: 09/09/19 09:05 Freq: Status: Active Protocol: Activity Type Activity Date Activity User E-Sign Co-Sign Detail Recorded Client Recorded Date Recorded By Document 09/09/19 10:23 DV [id number] 09/09/19 10:27 DV Document 09/16/19 09:59 DV [id number] 09/16/19 10:05 DV 09/09/19 09/16/19 10:23 09:59 Wound Center Nurse 2 2. LLE cluster -Time 10:24 10:00 -Correct Patient Yes Yes -Correct Side, Site, Position Yes Yes -Correct Procedure Yes No -Procedure Performed Yes No -Type of Procedure Debridement -Clinical Debridement Selective -Post Debridement Size (cm) - Length 8.0 0 -Post Debridement Size (cm) - Width 3.0 0 -Post Debridement Size (cm) - Depth 0.1 0 -Total Square (cm) 24.00 0 -Wound/Ulcer Outcome Not Healed Healed- Epithelialized -Ulcer Cleansing Rinsed/ Irrigated with Saline -Foul Odor after Cleansing No -Bioengineered Tissue No -Bleeding Controlled with Pressure -Offloading No -Treatment Response Procedure Tolerated Well 1. RLE cluster -Time 10:23 10:01 -Correct Patient Yes Yes -Correct Side, Site, Position Yes Yes -Correct Procedure Yes No -Procedure Performed Yes No -Type of Procedure Debridement -Clinical Debridement Selective -Post Debridement Size (cm) - Length 3.0 0 -Post Debridement Size (cm) - Width 5.5 0 -Post Debridement Size (cm) - Depth 0.1 0 -Total Square (cm) 16.50 0 -Wound/Ulcer Outcome Not Healed Healed- Epithelialized -Ulcer Cleansing Rinsed/ Irrigated with Saline -Foul Odor after Cleansing No -Bioengineered Tissue No -Bleeding Controlled with Pressure -Treatment Response Procedure Tolerated Well Pain Scale: 0-10 Numeric Is Patient Pain Free? Yes Yes No debridement was completed today - wounds are healed Assessment/Plan Active Problems (Last Updated 08/13/17 @ 09:20 by Janie Giang) Lymphedema of both lower extremities (Chronic) Hyperlipidemia (Chronic) HTN (hypertension) (Chronic) Assessment: lymphedema LE b/l Plan: Pam was seen and evaluated today. Her vascular tests show venous incompetence L>R. She did well with tubigrip compression stockings size D. She would benefit from compression stockings locator and possibly may need venous ablation if her ulcers become recurrent. She was educated on the cause of her edema and encouraged to elevated her LE when sitting, sleep in bed instead of chair and avoid idle standing. She was encouraged to increase protein intake to improve wound healing. She was advised to call with any increased erythema, odor, drainage or pain. She will be discharged at this time and will return if needed.
== END 2019-09-23 14:12 | disposition home or self-care (01) ==
LOC: WC 09:00
PROVIDERS: PCP Family Medicine; Referring Provider Family Medicine; Visit Provider Family Medicine
DX: I87.2 Venous insufficiency (chronic) (peripheral) (principal); I89.0 Lymphedema, not elsewhere classified; E78.5 Hyperlipidemia, unspecified; I10 Essential (primary) hypertension; L97.812 Non-pressure chronic ulcer of other part of right lower leg with fat layer exposed; Z79.899 Other long term (current) drug therapy; L97.821 Non-pressure chronic ulcer of other part of left lower leg limited to breakdown of skin; R60.0 Localized edema
CPT/HCPCS: 29580; 93970; 97597; 97598; 99212; 99213; G0463

== ENCOUNTER → 2023-01-29 | Outpatient (CLI) | payer MEDICARE, OTHER, SELFPAY ==
[2023-01-29 17:39] LABS: Absolute Lymphocyte Count 1.36 X10^3/uL (0.83-4.51); Absolute Neutrophil Count 5.8 X10^3/uL (2.0-7.7); Basophil# 0.02 X10^3/uL; Basophil% 0.2 % (0-1); Eosinophil# 0.18 X10^3/uL; Eosinophils% 2.2 % (0-5); Hemoglobin 12.4 g/dL (12.0-15.0); Lymphocyte # 1.36 X10^3/ul (0.83-4.51); Lymphocyte % 16.7 % (19-41); Mean Corp Hgb Conc 31.8 g/dL (32-36); Mean Corpuscular Hgb 32.9 pg (27.0-32.0); Mean Corpuscular Volume 103.4 fL (81-99); Mean Platelet Vol. 11.6 fl (6.2-12.0); Monocyte# 0.78 X10^3/uL; Monocyte% 9.6 % (0-10); NRBC Flagged by Analyzer 0 % (0-5); Neutrophil % 71.1 % (47-70); Platelet Count 180 K/mm3 (150-450); RBC Distribution Width CV 12.1 % (11.6-14.6); RBC Distribution Width SD 45.9 fl (35.1-43.9); Red Blood Count 3.77 M/mm3 (4.2-5.4); White Blood Count 8.2 K/mm3 (4.4-11.0)
[2023-01-29 18:00] LABS: AST(SGOT) 25 U/L (15-37); Alanine Aminotransfer ALT/SGPT 21 U/L (13-56); Albumin, Serum 3.6 g/dL (3.2-5.0); Alkaline Phosphatase 81 U/L (45-117); Anion Gap 6 (5-15); BUN 24 mg/dL (7-18); BUN/Creat Ratio 27.6 RATIO (10-20); Calcium,Total 8.5 mg/dL (8.5-10.1); Chloride 108 mmol/L (98-107); Cholesterol 121 mg/dL (200); Creatinine, Serum 0.87 mg/dL (0.55-1.02); EST Glomerular Filtration Rate 66 mL/min (>60); Est Glom Filt Rate - Afr Amer 79 mL/min (>60); Globulin 3.6 g/dL (2.2-4.2); Glucose 87 mg/dL (74-106); High Density Lipoprotein 61 mg/dL; Protein, Total 7.2 g/dL (6.4-8.2); Sodium Level 141 mmol/L (136-145); Triglycerides 77 mg/dL; Very Low Density Lipoprotein 15 mg/dL (5-40)
[2023-01-29 18:02] LABS: Vitamin D,25 Hydroxy 39.9 ng/mL
== END | disposition home or self-care (01) ==
LOC: BFHLAB 14:03
PROVIDERS: PCP Family Medicine; Visit Provider Family Medicine
DX: I12.9 Hypertensive chronic kidney disease with stage 1 through stage 4 chronic kidney disease, or unspecified chronic kidney disease (principal); N18.31 Chronic kidney disease, stage 3a; E55.9 Vitamin D deficiency, unspecified
CPT/HCPCS: 36415; 80053; 80061; 82306; 85025

== ENCOUNTER → 2024-02-04 | Outpatient (CLI) | payer MEDICARE, OTHER, SELFPAY ==
[2024-02-04 12:00] LABS: Absolute Lymphocyte Count 1.24 X10^3/uL (0.83-4.51); Absolute Neutrophil Count 5.3 X10^3/uL (2.0-7.7); Basophil# 0.03 X10^3/uL; Basophil% 0.4 % (0-1); Eosinophil# 0.34 X10^3/uL; Eosinophils% 4.5 % (0-5); Hematocrit 38.5 % (37-47); Hemoglobin 12.4 g/dL (12.0-15.0); Lymphocyte # 1.24 X10^3/ul (0.83-4.51); Lymphocyte % 16.5 % (19-41); Mean Corp Hgb Conc 32.2 g/dL (32-36); Mean Corpuscular Volume 102.4 fL (81-99); Mean Platelet Vol. 11.3 fl (6.2-12.0); NRBC Flagged by Analyzer 0 % (0-5); Neutrophil # 5.29 X10^3/uL (2.7-7.7); Neutrophil % 70.3 % (47-70); Platelet Count 175 K/mm3 (150-450); RBC Distribution Width CV 12.5 % (11.6-14.6); RBC Distribution Width SD 47.3 fl (35.1-43.9); Red Blood Count 3.76 M/mm3 (4.2-5.4); White Blood Count 7.5 K/mm3 (4.4-11.0)
[2024-02-04 12:20] LABS: ALB/GLOB Ratio 0.9 RATIO (0.9-2.4); AST(SGOT) 24 U/L (15-37); Alanine Aminotransfer ALT/SGPT 20 U/L (13-56); Albumin, Serum 3.6 g/dL (3.2-5.0); Alkaline Phosphatase 44 U/L (45-117); Anion Gap 6 (5-15); BUN 27 mg/dL (7-18); BUN/Creat Ratio 24.8 RATIO (10-20); Calcium,Total 9.6 mg/dL (8.5-10.1); Chloride 106 mmol/L (98-107); Cholesterol 136 mg/dL (200); Creatinine, Serum 1.09 mg/dL (0.55-1.02); EST Glomerular Filtration Rate 50 mL/min (>60); Est Glom Filt Rate - Afr Amer 61 mL/min (>60); Globulin 3.8 g/dL (2.2-4.2); Glucose 109 mg/dL (74-106); High Density Lipoprotein 57 mg/dL; Potassium 4.5 mmol/L (3.5-5.1); Protein, Total 7.4 g/dL (6.4-8.2); Sodium Level 139 mmol/L (136-145); Triglycerides 79 mg/dL; Very Low Density Lipoprotein 16 mg/dL (5-40); Vitamin D,25 Hydroxy 32.7 ng/mL
== END | disposition home or self-care (01) ==
LOC: BFHLAB 09:12
PROVIDERS: PCP Family Medicine; Referring Provider Family Medicine; Visit Provider Family Medicine
DX: I12.9 Hypertensive chronic kidney disease with stage 1 through stage 4 chronic kidney disease, or unspecified chronic kidney disease (principal); N18.31 Chronic kidney disease, stage 3a; E78.00 Pure hypercholesterolemia, unspecified; E55.9 Vitamin D deficiency, unspecified
CPT/HCPCS: 36415; 80053; 80061; 82306; 85025

== ENCOUNTER → 2025-02-06 | Outpatient (CLI) | payer MEDICARE, OTHER, SELFPAY ==
[2025-02-06 15:25] LABS: Hematocrit 36.6 % (37-47); Hemoglobin 12.0 g/dL (12.0-15.0); Immature Granulocytes Count 0.010 X10^3/uL (0.0-0.0); Mean Corp Hgb Conc 32.8 g/dL (32-36); Mean Corpuscular Volume 102.5 fL (81-99); Mean Platelet Vol. 11.9 fl (6.2-12.0); NRBC Flagged by Analyzer 0 % (0-5); Platelet Count 147 K/mm3 (150-450); RBC Distribution Width CV 12.9 % (11.6-14.6); RBC Distribution Width SD 47.8 fl (35.1-43.9); Red Blood Count 3.57 M/mm3 (4.2-5.4); White Blood Count 9.4 K/mm3 (4.4-11.0)
[2025-02-06 16:03] LABS: AST(SGOT) 25 U/L (<=31); Alanine Aminotransfer ALT/SGPT 12 U/L (<=34); Albumin, Serum 4.0 g/dL (3.4-4.8); Alkaline Phosphatase 132 U/L (35-104); Anion Gap 11 (5-15); BUN 21 mg/dL (4-19); BUN/Creat Ratio 23.6 RATIO (10-20); Calcium,Total 9.4 mg/dL (7.6-11.0); Carbon Dioxide 23.7 mmol/L (21.0-32.0); Chloride 103 mmol/L (98-108); Cholesterol 114 mg/dL (<=200); Globulin 3.4 g/dL (2.2-4.2); Glucose 111 mg/dL (70-99); Low Density Lipoprotein Calc. 50 mg/dL; Magnesium 1.6 mg/dL (1.5-2.2); Potassium 4.1 mmol/L (3.3-5.1); Triglycerides 63 mg/dL; Troponin T High Sensitivity 29 ng/L (<=14); Very Low Density Lipoprotein 13 mg/dL (5-40); cholesterol:hdl ratio screen 2.25
== END | disposition home or self-care (01) ==
LOC: BFHLAB 11:29
PROVIDERS: PCP Family Medicine; Visit Provider Family Medicine
DX: I12.9 Hypertensive chronic kidney disease with stage 1 through stage 4 chronic kidney disease, or unspecified chronic kidney disease (principal); I48.20 Chronic atrial fibrillation, unspecified; E78.00 Pure hypercholesterolemia, unspecified; I25.9 Chronic ischemic heart disease, unspecified
CPT/HCPCS: 36415; 80053; 80061; 83735; 84443; 84484; 85025

== ENCOUNTER → 2025-02-09 | Outpatient (CLI) | payer MEDICARE, OTHER, SELFPAY ==
--- NOTE | 2025-02-09 09:50 | ECHOD_ITS ---
Reason For Study Procedure This was a 2D Doppler, Color Flow transthoracic echocardiogram. The patient is in an irregular rhythm. The study was technically difficult. Due to arrhythmia. Exam performed in department. Left Ventricle Normal size and thickness. The left ventricular ejection fraction is 65 %. Diastolic function is indeterminate. Right Ventricle Normal right ventricle. Atria There is mild biatrial dilatation. Mitral Valve Mild mitral valve annular calcification. Mild mitral valve regurgitation. Tricuspid Valve Moderate to severe tricuspid valve regurgitation. Pulmonary artery systolic pressure estimated at 46 mmHg. Aortic Valve Trisinus/trileaflet aortic valve. Trivial aortic valve insufficiency. Pulmonic Valve The pulmonic valve is not well visualized. Great Vessels Normal sized aortic root. Pericardium/Pleural No pericardial effusion. Epicardial fat. MMode/2D Measurements & Calculations LVIDd: 4.5 cm IVSd: 1.1 cm Ao root diam: 3.6 cm LVIDs: 3.0 cm LVPWd: 1.1 cm RVDd: 3.3 cm FS: 32.5 % asc Aorta Diam: 4.1 cm LAV(MOD-bp): 62.2 ml LVAd ap4: 18.9 cm2 LAV(MOD-bp) Indexed: 34.2 ml/m2 LVLd ap4: 6.1 cm LAV(MOD-sp2): 58.8 ml EDV(MOD-sp4): 49.1 ml LAV(MOD-sp4): 57.7 ml EDV(sp4-el): 49.6 ml LVAs ap4: 11.0 cm2 LVLs ap4: 5.4 cm ESV(MOD-sp4): 20.3 ml ESV(sp4-el): 18.9 ml EF(MOD-sp4): 58.7 % EF(sp4-el): 62.0 % LVAd ap2: 26.9 cm2 SV(MOD-sp4): 28.8 ml LVLd ap2: 7.2 cm EDV(MOD-bp): 69.2 ml SI(MOD-sp4): 15.9 ml/m2 EDV(MOD-sp2): 84.1 ml ESV(MOD-bp): 24.4 ml EDV(sp2-el): 86.0 ml EF(MOD-bp): 64.7 % LVAs ap2: 13.5 cm2 LVLs ap2: 6.1 cm ESV(MOD-sp2): 26.3 ml ESV(sp2-el): 25.3 ml EF(MOD-sp2): 68.8 % SV(MOD-sp2): 57.9 ml SV(sp4-el): 30.7 ml LA A4 area: 20.3 cm2 SI(MOD-sp2): 31.8 ml/m2 LA dimension(2D): 3.5 cm RA A4 area: 18.0 cm2 TAPSE: 1.7 cm Time Measurements MV dec time: 0.20 sec Doppler Measurements & Calculations MV E max jacky: 81.8 cm/sec Ao V2 max: 126.2 cm/sec AI max jacky: 378.5 cm/sec MV A max jacky: 126.4 cm/sec Ao max P.4 mmHg AI max P.3 mmHg MV E/A: 0.65 Ao V2 mean: 80.4 cm/sec Ao mean P.0 mmHg AI dec slope: 238.6 cm/sec2 Ao V2 VTI: 22.7 cm AI P1/2t: 464.6 msec AV (velocity ratio): 0.67 LV V1 max: 91.7 cm/sec PA V2 max: 105.1 cm/sec TR max jacky: 308.2 cm/sec LV V1 max P.4 mmHg TR max P.0 mmHg LV V1 mean P.6 mmHg LV V1 mean: 59.2 cm/sec LV V1 VTI: 15.3 cm ECHO/Echo Complete Interpretation Summary The left ventricular ejection fraction is 65 %. Diastolic function is indeterminate. Mild mitral valve annular calcification. Mild mitral valve regurgitation. Moderate to severe tricuspid valve regurgitation. Pulmonary artery systolic pre ssure estimated at 46 mmHg. Ordering Physician: James Richard Referring Physician: James Richard Performed By: Mattie Wade, FLORENCIACS, RVT
== END | disposition home or self-care (01) ==
LOC: CVS 09:47
PROVIDERS: PCP Family Medicine; Referring Provider Family Medicine; Visit Provider Family Medicine
DX: I48.20 Chronic atrial fibrillation, unspecified (principal)
CPT/HCPCS: 93306